=== PATIENT | male | born 1975 | race Caucasian/White ===

== ENCOUNTER 2017-11-09 17:17 | Emergency (ER) | payer OTHER ==
[~2017-11-09] VITALS: Ht 180.3 cm; Wt 78.0 kg
[2017-11-09 17:30] VITALS: Ht 180.3 cm; Wt 78.0 kg
[2017-11-09 19:57] VITALS: BP 126/77
== END 2017-11-09 19:57 | disposition home or self-care (01) ==
LOC: ED 17:17
DX: S01.511A Laceration without foreign body of lip, initial encounter (principal); W26.8XXA Contact with other sharp object(s), not elsewhere classified, initial encounter; Y93.89 Activity, other specified; Y92.89 Other specified places as the place of occurrence of the external cause; Y99.8 Other external cause status
CPT/HCPCS: 90715; J2001